=== PATIENT | female | born 1975 ===

== ENCOUNTER 2019-10-25 21:40 | Emergency (ER) | payer SELFPAY ==
[2019-10-25 22:18] VITALS: BP 107/73
[2019-10-25] MEDS ORDERED: ONDANSETRON HCL INJ/PF 4 MG/2 ML SDV IV ONE (23:48)
--- NOTE | 2019-10-25 23:50 | ER Document Report ---
ED Medical Screen (RME) - General Stated Complaint: ABDOMINAL PAIN Time Seen by Provider: 10/25/19 23:46 Notes: HPI: 44-year-old female presenting to the emergency department complaining of intermittent right flank pain similar to previous kidney stones. Does report a kidney stone history. States discomfort started approximately 4 days ago seems to come and go but today is been fairly constant 4-5 episodes of vomiting daily. No fever. Patient states that she has always been able to pass her kidney stones is never had a stent or other procedure for these. Patient states the pain started in the right back and radiates down through the right groin. Patient states she went to urgent care during the week but "they would not do anything". She reports an allergy to NSAIDs and Lyrica PHYSICAL EXAMINATION: Mildly uncomfortable with mild right CVA tenderness and mild tenderness to the right flank and right lower quadrant region on palpation I have greeted and performed a rapid initial assessment of this patient. A comprehensive ED assessment and evaluation of the patient, analysis of test results and completion of medical decision making process will be conducted by an additional ED providers. Physical Exam - Vital signs Vitals: Temp Pulse Resp BP Pulse Ox 99.0 F 84 16 107/73 100 10/25/19 22:16 10/25/19 22:16 10/25/19 22:16 10/25/19 22:16 10/25/19 22:16 Course - Vital Signs Vital signs: Temp Pulse Resp BP Pulse Ox 99.0 F 84 16 107/73 100 10/25/19 22:16 10/25/19 22:16 10/25/19 22:16 10/25/19 22:16 10/25/19 22:16
== END 2019-10-26 02:10 | disposition left against medical advice (07) ==
LOC: ER 21:40
DX: R10.9 Unspecified abdominal pain (principal); Z87.442 Personal history of urinary calculi
CPT/HCPCS: 99281